=== PATIENT | male | born 1995 | race Two or more races ===

== ENCOUNTER 2019-05-25 20:56 | Emergency (ER) | payer MEDICAID ==
[~2019-05-25] VITALS: Ht 160 cm; Wt 59.0 kg
[2019-05-25 20:56] VITALS: BP 140/78
[2019-05-25] MEDS ORDERED: AZITHROMYCIN 250 MG TABLET ONE (21:57)
[2019-05-25] MEDS ORDERED: IBUPROFEN 600 MG TABLET PO ONE ×2 (21:58→22:00)
[2019-05-25] MEDS ORDERED: AZITHROMYCIN 250 MG TABLET PO ONE (22:00)
[2019-05-25] MEDS ORDERED: ANTIPYRINE/BENZOCAINE/GLYCERIN 15 ML DROPS OT ONE (22:00)
[2019-05-25] MEDS ORDERED: LIDOCAINE VISCOUS 2% UD 15 ML UDC ONE (22:06)
[2019-05-25] MEDS ORDERED: LIDOCAINE VISCOUS 2% UD 15 ML UDC MM ONE (22:30)
== END 2019-05-25 22:16 | disposition home or self-care (01) ==
LOC: ER 20:57
DX: H66.91 Otitis media, unspecified, right ear (principal)

== ENCOUNTER 2022-06-17 14:59 | Inpatient (IN) | payer MEDICAID ==
[~2022-06-17] VITALS: Ht 165.1 cm; Wt 67.6 kg
--- NOTE | 2022-06-17 15:30 | NUR ---
LOW ABDOMINAL PAIN AND DIARRHEA SINCE YESTERDAY
--- NOTE | 2022-06-17 15:35 | NUR ---
iv established. crescencio ac18 g Addendum: 06/17/22 at 1744 by EUGENIO Crescencio FALLON 18G
[2022-06-17] MEDS ORDERED: MORPHINE SULFATE INJ 2 MG/ML DISP.SYRIN IV ONE ×2 (16:30→18:00)
[2022-06-17] MEDS ORDERED: IV NS 0.9% 1,000 ML BAG IV ONE (16:30)
[2022-06-17 16:32] LABS: BASOPHILS # (AUTO) 0.1 K/uL (0.0-0.2); BASOPHILS % (AUTO) 1.4 % (0.0-2.0); EOSINOPHILS % (AUTO) 2.5 % (0.0-6.0); HEMATOCRIT 45 % (39-51); HEMOGLOBIN 15.1 g/dL (13.5-17.5); LYMPHOCYTES # (AUTO) 2.1 K/uL (0.8-4.8); LYMPHOCYTES % (AUTO) 25.4 % (20.0-44.0); MEAN CORPUSCULAR HGB CONC 33 g/dl (31.0-36.0); MEAN CORPUSCULAR VOLUME 88 fL (80-96); MONOCYTES # (AUTO) 0.6 K/uL (0.1-1.30); MONOCYTES % (AUTO) 7.3 % (2.0-12.0); NEUTROPHILS # (AUTO) 5.2 K/uL (1.8-8.9); NEUTROPHILS % (AUTO) 63.4 % (43.0-81.0); PLATELET COUNT (AUTO) 222 K/uL (150-450); RED BLOOD CELL COUNT(AUTO) 5.17 MIL/uL (4.5-6.0); WHITE BLOOD COUNT (AUTO) 8.1 K/uL (4.3-11.0)
[2022-06-17] MEDS ORDERED: MORPHINE SULFATE INJ 2 MG/ML DISP.SYRIN ONE ×2 (16:36→18:06)
[2022-06-17 16:38] LABS: CALCIUM, SERUM 9.2 mg/dL (8.5-10.1); CREATININE 0.8 mg/dL (0.6-1.3); POTASSIUM 3.7 mmol/L (3.5-5.1)
[2022-06-17 16:45] LABS: ALBUMIN 4.4 g/dL (3.4-5.0); BILIRUBIN,DIRECT 0.1 mg/dL (0.0-0.2); BILIRUBIN,TOTAL 0.3 mg/dL (0.2-1.0); TOTAL PROTEIN, SERUM 7.1 g/dL (6.4-8.2)
[2022-06-17 16:47] LABS: BILIRUBIN,URINE NEGATIVE (NEGATIVE); COLOR,URINE YELLOW (YELLOW); LEUKOCYTE ESTERASE ,URINE NEGATIVE (NEGATIVE); NITRITE, URINE NEGATIVE (NEGATIVE); PH,URINE 7.5 (5.0-8.0); PROTEIN,URINE NEGATIVE (NEGATIVE); UGLUCOSE NEGATIVE (NEGATIVE); UROBILINOGEN,URINE 0.2 EU/dL (0.2)
--- NOTE | 2022-06-17 17:59 | NUR ---
CALLED DR. MARQUEZ LEFT .
--- NOTE | 2022-06-17 18:31 | NUR ---
MOVE SHEET SUBMITTED.
--- NOTE | 2022-06-17 19:03 | NUR ---
covid swab collected and sent to lab
--- NOTE | 2022-06-17 19:32 | NUR ---
RECEIVED REPORT FROM PRADEEP SPENCER. PATIENT AAOX4, ABLE TO MAKE NEEDS KNOWN. RAC 18GA. CAME EARLIER WITH C/O LOWER ABDOMINAL PAIN & TESTICULAR PAIN. PLACED COMFORTABLY IN BED, NEEDS ATTENDED. VITALS CHECKED.
--- NOTE | 2022-06-17 19:32 | NUR ---
DR TOMLIN PAGED PER DR RICHMOND
--- NOTE | 2022-06-17 20:02 | NUR ---
PT COMPLAINING OF ABDL PAIN SCALE OF 10/10. EXPLAINED TO PT THAT WE HAVE TO GIVE GAP ON THE PAIN MEDICATION THAT HE WAS GIVEN. HE ALREADY RECIEVED MORPHINE 4MG. PT AGREED.
--- NOTE | 2022-06-17 20:12 | NUR ---
SEEN BY IS TECHNICIAN AT BEDSIDE
--- NOTE | 2022-06-17 20:42 | NUR ---
REPAGED DR TOMLIN- CURRENTLY SPEAKING W/ DR RICHMOND
[2022-06-17] MEDS ORDERED: MORPHINE SULFATE INJ 2 MG/ML DISP.SYRIN IV PRN (21:30)
[2022-06-17] MEDS ORDERED: MAGNESIUM HYDROXIDE 30 ML UDC PO PRN (21:30)
[2022-06-17] MEDS ORDERED: Z GUARD REMEDY 4 OZ OINT TP PRN (21:30)
[2022-06-17] MEDS ORDERED: ZOLPIDEM TARTRATE 5 MG TABLET PO PRN (21:30)
[2022-06-17] MEDS ORDERED: ONDANSETRON HCL/PF 4 MG/2 ML VIAL IVP PRN (21:30)
[2022-06-17] MEDS ORDERED: ACETAMINOPHEN 325 MG TABLET PO PRN (21:30)
[2022-06-17] MEDS ORDERED: MAG HYDROX/AL HYDROX/SIMETH 30 ML UDC PO PRN (21:30)
--- NOTE | 2022-06-17 21:42 | NUR ---
REPORT GIVEN TO PRADEEP SCHAFER. GOING TO 323-2.
--- NOTE | 2022-06-17 22:15 | NUR ---
PT TRANSFERED TO [facility], ACCOMPANIED BY EMT.
--- NOTE | 2022-06-17 22:15 | NUR ---
RN NOTES; RECEIVED PT FROM ER AWAKED AOX4 THAI SPEAKING WITH A LITTLE DIVEHI,BELKIS WELL ON RM AIR SAT 98%,NO SIGN SOB/DISTRESS NOTED,NO COMPLAINED OF PAIN/DISCOMFORT AT THIS TIME,IV ACCESS ON RAC 18G INTACT AND PATENT,PT WAS ORIENT THE RM AND VERBALLY RESPONSIVE,SAFETY MEASURE IN PLACE,CALL LIGHT WITHIN REACH,WILL CONTINUE TO MONITOR.
[2022-06-17] MEDS: IV NS 0.9% 1,000 ML IV PRN (23:10)
--- NOTE | 2022-06-18 06:17 | NUR ---
RN CLOSING NOTES; PATIENT AWAKED IN BED AOX4 INDONESIAN SPEAKING WITH A LITTLE WOLOF,BELKIS WELL ON RM AIR SAT 97%,NO SIGN SOB/DISTRESS NOTED,NO COMPLAINED OF PAIN/DISCOMFORT DURING SHIFT,DUE MEDS GIVEN ORDER,ALL NEEDS ATTENDED,IV ACCESS ON RAC 18G WITH NS 75ML/HR INFUSING WELL,,SAFETY MEASURE IN PLACE,CALL LIGHT WITHIN REACH,WILL ENDORSED TO NEXT SHIFT.
[2022-06-18 07:04] LABS: BASOPHILS % (AUTO) 0.4 % (0.0-2.0); EOSINOPHILS % (AUTO) 4.2 % (0.0-6.0); HEMATOCRIT 44 % (39-51); HEMOGLOBIN 14.8 g/dL (13.5-17.5); LYMPHOCYTES # (AUTO) 1.7 K/uL (0.8-4.8); LYMPHOCYTES % (AUTO) 28.9 % (20.0-44.0); MEAN CORPUSCULAR HGB CONC 33 g/dl (31.0-36.0); MEAN CORPUSCULAR VOLUME 87 fL (80-96); MONOCYTES # (AUTO) 0.6 K/uL (0.1-1.30); MONOCYTES % (AUTO) 9.2 % (2.0-12.0); NEUTROPHILS # (AUTO) 3.4 K/uL (1.8-8.9); NEUTROPHILS % (AUTO) 57.3 % (43.0-81.0); PLATELET COUNT (AUTO) 207 K/uL (150-450); RED BLOOD CELL COUNT(AUTO) 5.08 MIL/uL (4.5-6.0)
--- NOTE | 2022-06-18 07:15 | NUR ---
MS RN OPENING NOTES RECEIVED PT LYING IN BED, AOX4, URDU SPEAKING MOSTLY, UNDERSTANDS AND SPEAKS LITTLE DANISH. ON ROOM AIR, STABLE AND WITHOUT DIFFICULTY. PATIENT REPORTS 5/10 ABDOMINAL PAIN BUT REFUSED PAIN MEDICATION AT THIS TIME. PT IS ORIENTED TO ROOM AND STAFF AND KNOWS HOW TO USE THE CALL LIGHT FOR HELP. IV ACCESS ON THE RIGHT UPPER ARM G#18 INTACT, FLUSHING WELL WITH RUNNING NS 75 ML/HR. PATIENT REMAINS ON NPO FOR POSSIBLE PROCEDURE TODAY. SAFETY PRECAUTIONS IN PLACE: BED IN LOWEST AND LOCKED POSITION, SIDE RAILS UP X2, CALL LIGHT AND TRAY TABLE WITHIN EASY REACH. WILL CONTINUE TO MONITOR.
[2022-06-18 07:23] LABS: CALCIUM, SERUM 8.8 mg/dL (8.5-10.1); CREATININE 0.8 mg/dL (0.6-1.3); MAGNESIUM 2.2 mg/dL (1.8-2.4); POTASSIUM 3.9 mmol/L (3.5-5.1)
[2022-06-18 08:00] VITALS: BP 101/68
[2022-06-18] MEDS: PANTOPRAZOLE 40 MG VIAL IV SCH (08:35)
--- NOTE | 2022-06-18 10:50 | NUR ---
RN NOTES - PATIENT COMPLAINING OF 8/10 ABDOMINAL PAIN - REQUESTED FOR PAIN MEDICATION - GIVEN MORPHINE SULFATE 4MG IVP, WILL CONTINUE TO MONITOR.
--- NOTE | 2022-06-18 14:01 | NUR ---
RN NOTES - SURGERY 06/[address] TOMLIN, SURGERY FOR TOMORROW - OPEN REPAIR OF LEFT INCARCERATED INGUINAL HERNIA, POSSIBLE USE OF MESH. PATIENT TO RESUME REGULAR DIET, THEN NPO AFTER MIDNIGHT TONIGHT. SURGERY TO BE DONE TOMORROW AFTERNOON. CONSENTS HAVE BEEN SIGNED WELL
[2022-06-18] MEDS: IV NS 0.9% 1,000 ML IV PRN (14:26)
--- NOTE | 2022-06-18 18:50 | NUR ---
MS RN CLOSING NOTES PT LYING IN BED, AOX4, CALM, COOPERATIVE, ON ROOM AIR, STABLE AND WITHOUT DIFFICULTY. PAIN IS CONTROLLED AT THIS TIME. IV ACCESS ON THE RIGHT UPPER ARM G#18 INTACT, FLUSHING WELL WITH STANDBY NS 75 ML/HR. PATIENT IS AWARE OF HIS SURGERY TOMORROW AND WILL BE ON NPO AFTER MIDNIGHT. ALL NEEDS MET, ALL DUE MEDS GIVEN. SAFETY PRECAUTIONS MAINTAINED: BED IN LOWEST AND LOCKED POSITION, SIDE RAILS UP X2, CALL LIGHT AND TRAY TABLE WITHIN EASY REACH. WILL ENDORSE TO OUTPATIENT SCHEDULER NURSE.
--- NOTE | 2022-06-18 19:58 | NUR ---
MS RN OPENING NOTES RECEIVED PATIENT IN BED, ON MODERATE HIGH BACK REST POSITION. ON ROOM AIR SATURATING WELL. WITH COMPLAIN OF PAIN AT 4/10 PAIN SCALE TYLENOL 650MG GIVEN AND WELL TOLERATED BY THE PATIENT, NO COMPLAIN OF SOB OR ANY DISTRESS AT THIS TIME. ON REGULAR DIET. PATIENT IS FOR HERNIA REPAIR ON 06/19/2022 WITH CONSENT SIGNED AND VERIFIED. PATIENT IS AWARE REGARDING THE PROCEDURE AND VERBALIZED UNDERSTANDING. KEPT PATIENT WARM AND COMFORTABLE. KEPT BED ON LOWER LOCKED POSITION. KEPT SIDE RAILS UP X 3 ALL THE TIME. KEPT CALL LIGHT WITHIN AT REACH. WILL CONTINUE TO MONITOR FOR BRIELLE.
[2022-06-18 20:00] VITALS: BP 103/62
--- NOTE | 2022-06-19 | NUR ---
RN MS NOTES PLACED ON NPO. PATIENT IS ADVISED AND VERBALIZED UNDERSTANDING. WILL CONTINUE TO MONITOR.
[2022-06-19 05:52] LABS: BASOPHILS % (AUTO) 0.3 % (0.0-2.0); EOSINOPHILS % (AUTO) 4.5 % (0.0-6.0); HEMATOCRIT 43 % (39-51); HEMOGLOBIN 14.6 g/dL (13.5-17.5); LYMPHOCYTES % (AUTO) 32.9 % (20.0-44.0); MEAN CORPUSCULAR HGB CONC 34 g/dl (31.0-36.0); MEAN CORPUSCULAR VOLUME 87 fL (80-96); MONOCYTES # (AUTO) 0.5 K/uL (0.1-1.30); NEUTROPHILS # (AUTO) 3.4 K/uL (1.8-8.9); NEUTROPHILS % (AUTO) 54.3 % (43.0-81.0); PLATELET COUNT (AUTO) 205 K/uL (150-450); RED BLOOD CELL COUNT(AUTO) 4.91 MIL/uL (4.5-6.0); WHITE BLOOD COUNT (AUTO) 6.2 K/uL (4.3-11.0)
[2022-06-19 06:08] LABS: CALCIUM, SERUM 8.5 mg/dL (8.5-10.1); CREATININE 0.8 mg/dL (0.6-1.3); MAGNESIUM 2.2 mg/dL (1.8-2.4); PHOSPHORUS 4.2 mg/dL (2.5-4.9)
--- NOTE | 2022-06-19 06:28 | NUR ---
MS RN CLOSING NOTES PATIENT IS IN BED, AWAKE AND COHERENT. ON MODERATE HIGH BACK REST POSITION. ON ROOM AIR. ON ROOM AIR SATURATING WELL. WITH IV ACCESS AT RIGHT AC #18G WITH NS 1L AT 75ML/HR INFUSING WELL. PATIENT IS FOR SURGERY TODAY AT 12 NOON MAINTAINED NPO SINCE MIDNIGHT. CONSENT SIGNED AND VERIFIED. CHECK LIST FACILITATED. ALL DUE MEDICATIONS GIVEN, SURGERY PREPPING DONE. ALL NEEDS ATTENDED. KEPT BED ON LOWER LOCKED POSITION, KEPT SIDE RAILS UP X 2 ALL THE TIME. SAFETY PRECAUTIONS MAINTAINED. WILL ENDORSED TO AM SHIFT FOR BRIELLE.
--- NOTE | 2022-06-19 07:00 | NUR ---
MS RN OPENING NOTES: RECEIVED PT IN BED AWAKE, ALERT AND ORIENTED X 4 SOUTH KOREAN SPEAKING, ABLE TO UNDERSTAND AND COMMUNICATE A LITTLE ARMENIAN. PATIENT COMPLAINED 3/10 PAIN. ON NPO. NO SOB OR CARDIAC DISTRESS NOTED. ON ROOM AIR AND TOLERATING WELL. IV ACCESS ON RAC GAUGE 18 PATENT INTACT AND INFUSING IVF NS @75ML/HR. SAFETY MEASURES MAINTAINED: BED LOCKED AND IN LOWEST POSITION. SIDE RAILS UP X2. CALL LIGHT IN EASY REACH AND WILL MONITOR PT ACCORDINGLY.
--- NOTE | 2022-06-19 07:09 | NUR ---
RN NOTES: RECEIVED A CALL FROM LAB ([facility]) WBC RESULTS IS 1.8, LOW GRADE FEVER 100.2F AND RELAYED TO DR ROY. PENDING FOR RESPONSE.
[2022-06-19 08:00] VITALS: BP 113/63
[2022-06-19] MEDS: PANTOPRAZOLE 40 MG VIAL IV SCH (08:23)
[2022-06-19] MEDS ORDERED: LIDOCAINE 1% INJ 50 ML MDV IJ ONE (11:41)
[2022-06-19] MEDS ORDERED: ANESTHESIA TRAY IN PYXIS 1 EA TRAY MC ONE (11:41)
[2022-06-19] MEDS ORDERED: BUPIVACAINE MPF 0.5% W/EPI INJ 30 ML VIAL ONE (11:41)
--- NOTE | 2022-06-19 11:53 | NUR ---
RN NOTES: PATIENT PICKED UP BY RN AND TRANSPORTER. PT LEFT THE UNIT STABLE.
[2022-06-19] MEDS ORDERED: FENTANYL PF 100MCG/2ML AMPUL ONE ×3 (11:56→14:28)
[2022-06-19] MEDS ORDERED: MIDAZOLAM HCL 2 MG/2ML VIAL ONE (11:56)
[2022-06-19] MEDS ORDERED: ACETAMINOPHEN 325 MG TABLET PO ONE (15:00)
[2022-06-19] MEDS ORDERED: GABAPENTIN 300 MG CAPSULE PO ONE (15:00)
[2022-06-19] MEDS ORDERED: CELECOXIB 100 MG CAPSULE PO ONE (15:00)
--- NOTE | 2022-06-19 15:00 | NUR ---
POST OP NOTES: RECEIVED PT FROM OR @2:45 PM. PATIENT S/P OPEN REPAIR LEFT INGUINAL INCARCERATED HERNIA BY DR TOMLIN. PT A/O X 4 TANZANIAN SPEAKING. ACCOMPANIED BY PRADEEP CAGE AND TRANSPORTER. RECEIVED A BED SIDE ENDORSEMENT FROM PRADEEP CAGE AND WITH DOCTORS ORDER: VS ORDERED, IV FLUIDS NS @ 75ML/HR, DIET TOLERATED, CELEBREX 200MG PO AT 3PM,NEURONTIN 300 MG PO AT 3PM, TYLENOL 650MG PO AT 3 PM, MAY DC HOME TODAY AROUND 4 OR 5PM IF PT STABLE,FOLLOW UP WITH DR TOMLIN IN ONE WEEK. ORDERS NOTED AND CARRIED OUT. PT VS STABLE. OFFERED WATER AND CRACKERS. PT TOLERATED WELL THE MEDS. PRESCRIPTION GIVEN TO MS RUIZ ().
--- NOTE | 2022-06-19 17:25 | NUR ---
VP CUSTOMER DEVELOPMENT NOTES: PT DC HOME WITH , A/O X 4 AND ABLE TO MAKE NEEDS KNOWN. NO SOB OR CARDIAC DISTRESS NOTED. NO PAIN PER PT VERBALIZED. PRESCRIPTION GIVEN TO . DISCHARGE INSTRUCTIONS GIVEN TO PT AND AND VERBALIZED UNDERSTANDING. IV ACCESS REMOVED AND CUT THE IDENTIFICATION BAND. ALL BELONGINGS WITH THE PT. PT HAD DRESSING ON LEFT GROIN INTACT AND CLEAN. PT LEFT THE UNIT STABLE. PROVIDED THE THE SURGEON'S INFO ATTACHED TO PT'S PACKET.
== END 2022-06-19 17:20 | disposition home or self-care (01) | DRG 228 ==
LOC: ER 15:14 → MED 21:48
PROVIDERS: ADMIT Registered Nurse; ATTEND Nurse Practitioner Acute Care
PROC: 0YU60JZ Supplement Left Inguinal Region with Synthetic Substitute, Open Approach (ICD-10-PCS; principal; 2022-06-19)
DX: K40.30 Unilateral inguinal hernia, with obstruction, without gangrene, not specified as recurrent (principal); E86.0 Dehydration; K76.0 Fatty (change of) liver, not elsewhere classified; Z20.822 Contact with and (suspected) exposure to COVID-19; R79.89 Other specified abnormal findings of blood chemistry
CPT/HCPCS: 36415; 80048-TC; 80061-TC; 80076-TC; 83690-TC; 83735-TC; 84100-TC; 85025-TC; 87081-TC; 87086-TC; A4223; C9113; C9803; G0378; J0690; J2250; J2270; J2405; J2704; J3010; J3490; J7030